=== PATIENT | male | born 1995 | race Caucasian/White ===

== ENCOUNTER 2023-06-01 12:46 | Emergency (ER) | payer OTHER ==
[2023-06-01] MEDS ORDERED: predniSONE 20 MG TAB ONE (13:24)
[2023-06-01] MEDS ORDERED: Acetaminophen/Codeine 30-300mg Tablet ONE (13:24)
[2023-06-01] MEDS ORDERED: Ketorolac Tromethamine 30 MG/ML VIAL ONE (13:24)
[2023-06-01 13:36] LABS: #Basophils 0.1 10x3/uL (0.0-0.2); #Eosinphils 0.2 10x3/uL (0.0-0.5); #Monocytes 0.7 10x3/uL (0.0-1.1); #Neutrophils 4.4 10x3/uL (1.5-8.4); %Basophils 0.9 % (0.0-2.0); %Eosinophils 3.5 % (0.0-6.0); %Lymphocytes 21.1 % (18.0-47.0); %Monocytes 9.7 % (0.0-10.0); %Neutrophils 64.5 % (40.0-75.0); Hematocrit 45.4 % (38.8-50.0); Hemoglobin 15.3 g/dL (13.5-17.5); Mean Corpuscular HGB CONC 33.7 g/dL (32.0-36.0); Mean Corpuscular Hemoglobin 31.4 pg (27.0-33.0); Mean Corpuscular Volume 93.2 fl (81.2-95.1); Platelet Count 285 10x3/uL (150-450); RBC Distribution Width 12.6 % (11.5-14.5); Red Blood Cell (RBC) Count 4.87 10x6/uL (4.32-5.72); White Blood Cell (WBC) Count 6.8 10x3/uL (3.5-10.5)
[2023-06-01 13:53] LABS: ALT (SGPT) 31 U/L (8-55); AST (SGOT) 20 U/L (5-34); Albumin 4.9 g/dL (3.5-5.0); Alkaline Phosphatase 40 U/L (40-110); Anion Gap 12 mmol/L (10-20); BUN (Urea Nitrogen) 9 mg/dL (8.9-20.6); Bilirubin, Total 0.4 mg/dL (0.2-1.2); Calc. Creatinine Clearance 0 mL/min (70-130); Calcium 9.8 mg/dL (7.8-10.44); Carbon Dioxide 27 mmol/L (22-29); Chloride 102 mmol/L (98-107); Estimated GFR 120; Globulin 2.8 g/dL (2.4-3.5); Glucose 87 mg/dL (70-105); Lipase 11 U/L (8-78); Potassium 4.2 mmol/L (3.5-5.1); Protein, Total 7.7 g/dL (6.0-8.3); Sodium 137 mmol/L (136-145)
== END 2023-06-01 15:00 | disposition home or self-care (01) ==
LOC: CSHERS 12:46
DX: S39.012A Strain of muscle, fascia and tendon of lower back, initial encounter (principal); X50.9XXA Other and unspecified overexertion or strenuous movements or postures, initial encounter
CPT/HCPCS: 72100; 80053; 83690; 85025; 96372; J1885; J7512